=== PATIENT | female | born 1965 | race Caucasian/White ===

== ENCOUNTER 2017-12-21 15:54 | Emergency (ER) | payer BC ==
[2017-12-21] MEDS ORDERED: SODIUM CHLORIDE 0.9% FLUSH 10 ML SOL IV PRN (15:57)
[2017-12-21] MEDS ORDERED: ASPIRIN 81 MG CHEWABLE CTB PO STA (15:57)
[2017-12-21 16:06] LABS: BASOPHILS % (AUTO) 2 % (0-3); EOSINOPHILS % (AUTO) 7 % (0-9); HEMATOCRIT 44 % (35-47); HEMOGLOBIN 14.4 gm/dl (12.0-15.5); LYMPHOCYTES % (AUTO) 30.35 % (10-50); MEAN CORPUSCULAR HEMOGLOBIN 28.4 pg (27.0-32.0); MEAN CORPUSCULAR HGB CONC 32.4 gm/dl (32.0-36.0); MEAN CORPUSCULAR VOLUME 88 fL (81-99); MONOCYTES % (AUTO) 7.2 % (0-12)
[2017-12-21] MEDS ORDERED: ASPIRIN 81 MG CHEWABLE CTB ONE (16:07)
[2017-12-21] MEDS ORDERED: NITROGLYCERIN 0.4 MG TAB SL ONE (16:07)
[2017-12-21] MEDS: NITROGLYCERIN 0.4 MG TAB SL PRN ×2 (16:10→16:49)
[2017-12-21 16:23] LABS: BLOOD UREA NITROGEN 12 mg/dl (7-18); CALCIUM 9.2 mg/dl (8.5-10.1); CARBON DIOXIDE 25.8 mEq/L (21-32); CHLORIDE 106 mMol/L (98-107); CREATINE KINASE 83 U/L (26-192); CREATININE 0.89 mg/dl (0.60-1.00); GLOM FILT RATE 66 mL/min (>60); GLUCOSE 88 mg/dl (74-106); SODIUM 143 mMol/L (136-145); TROP I < 0.017 ng/ml (0.000-0.056)
[2017-12-21 16:24] VITALS: TEMP 98.4
[2017-12-21 16:58] VITALS: RESP 19; O2SAT 97
[2017-12-21] MEDS ORDERED: ENOXAPARIN 100 MG SOL SC SCH (17:15)
[2017-12-21] MEDS ORDERED: ENOXAPARIN 100 MG SOL SC ONE (17:17)
[2017-12-21 18:08] VITALS: BP 153/97; PULSE 75
== END 2017-12-21 18:10 | disposition home or self-care (01) ==
LOC: ED 15:54
DX: I48.91 Unspecified atrial fibrillation (principal)
CPT/HCPCS: 71045; 80048; 82550; 84484; 85025; 93005; 96372; 99284; 99285; J1650; A9270-GY

== ENCOUNTER 2018-07-07 14:42 | Emergency (ER) | payer BC ==
[2018-07-07 14:48] VITALS: TEMP 97.3
[2018-07-07] MEDS ORDERED: SODIUM CHLORIDE 0.9% 500 ML 500 ML IV ONE (15:16)
[2018-07-07 15:27] LABS: BASOPHILS % (AUTO) 2 % (0-3); EOSINOPHILS % (AUTO) 6 % (0-9); HEMATOCRIT 35 % (35-47); HEMOGLOBIN 11.1 gm/dl (12.0-15.5); LYMPHOCYTES % (AUTO) 30.5 % (10-50); MEAN CORPUSCULAR HEMOGLOBIN 27.3 pg (27.0-32.0); MEAN CORPUSCULAR HGB CONC 31.6 gm/dl (32.0-36.0); MEAN CORPUSCULAR VOLUME 86 fL (81-99); MONOCYTES % (AUTO) 7.7 % (0-12)
[2018-07-07 15:37] LABS: CALCIUM 8.6 mg/dl (8.5-10.1); CREATININE 0.83 mg/dl (0.60-1.00); INR 1.02 (0.86-1.12); POTASSIUM 3.7 mMol/L (3.5-5.1)
[2018-07-07 16:37] VITALS: O2SAT 98
[2018-07-07 16:38] VITALS: BP 137/90; PULSE 66; RESP 16
== END 2018-07-07 16:48 | disposition short-term general hospital (02) ==
LOC: ED 14:42
DX: N93.9 Abnormal uterine and vaginal bleeding, unspecified (principal); I48.91 Unspecified atrial fibrillation; Z79.01 Long term (current) use of anticoagulants
CPT/HCPCS: 80048; 85025; 85610; 96365; 99283; 99285